=== PATIENT | female | born 1980 | race Caucasian/White ===

== ENCOUNTER 2024-02-18 17:14 | Emergency (ER) | payer BC ==
--- NOTE | 2024-02-18 18:15 | RAD REPORT ---
EXAM DESCRIPTION: RAD - Chest Single View - 02/18/2024 6:08 pm CLINICAL HISTORY: CHEST PAIN Chest pain. COMPARISON: <Comparisons> FINDINGS: Portable technique limits examination quality. The lungs are grossly clear. The heart is normal in size. No displaced fractures. IMPRESSION: No acute intrathoracic process suspected.
--- NOTE | 2024-02-18 20:08 | ER ---
Nurse's Notes [facility] Name: Renetta Hemph[facility] Age: 43 yrs Sex: Female : 1980 Arrival Date: 02/18/2024 Time: 17:14 Bed IW8 Private MD: Diagnosis: Presentation: 02/17 17:19 Chief complaint: Patient states: LEFT CHEST PAIN INTO SHOULDER x45 MIN. bp 17:19 Method Of Arrival: Wheelchair bp 17:19 Coronavirus screen: At this time, the client does not indicate any symptoms associated bp with coronavirus-19. Ebola Screen: No symptoms or risks identified at this time. Initial Sepsis Screen: Does the patient meet any 2 criteria? No. Patient's initial sepsis screen is negative. Does the patient have a suspected source of infection? No. Patient's initial sepsis screen is negative. Risk Assessment: Do you want to hurt yourself or someone else? Patient reports no desire to harm self or others. Onset of symptoms was February 18, 2024 at 16:30. 17:19 Acuity: JAMSE 3 bp Triage Assessment: 17:19 General: Appears distressed, Behavior is cooperative, appropriate for age, anxious. bp Pain: Complains of pain in chest. Cardiovascular: Rhythm is sinus rhythm. Historical: - Allergies: 17:19 Soma; bp 17:19 Sulfa (Sulfonamide Antibiotics); bp - Home Meds: 17:19 None [Active]; bp - Immunization history:: Adult Immunizations up to date. - Infectious Disease History:: Denies. - Social history:: Smoking status: Patient reports the use of cigarette tobacco products, unknown amount. Assessment: 19:45 Reassessment: called from [place], no answer. jl7 Vital Signs: 17:19 BP 144 / 96; Pulse 81; Resp 16; Temp 98; Pulse Ox 100% ; bp ED Course: 17:17 Patient arrived in ED. mg5 17:19 Arm band placed on. bp 17:21 Triage completed. bp 17:23 Matthew Mckinley MD is Attending Physician. sp3 18:10 XRAY Chest (1 view) In Process Unspecified. EDMS 19:27 Pt was not in chair when going to do labs. Called pt from [place], no answer. Charge rv1 nurse notified. 19:45 Patient's name was called from ER [place]. No response. Unable to locate patient. Will jl7 disposition as left without being seen by a provider. 20:07 Patient's name was called from ER lobby. No response. Unable to locate patient. Will jl7 disposition as left without being seen by a provider. Administered Medications: No medications were administered Outcome: 20:07 Patient left the ED. jl7 Signatures: Dispatcher [employer] EDMS Shruthi Barraza RN RN jl7 Dion Posey RN RN Matthew Walton MD MD sp3 Kathleen Dozier 1 Mindi Kovacs mg5
--- NOTE | 2024-02-18 20:08 | EDPHYS ---
Physician Documentation [facility] Name: Renetta Hemphill Age: 43 yrs Sex: Female : 1980 Arrival Date: 02/18/2024 Time: 17:14 Bed IW8 Private MD: ED Physician Matthew Mckinley HPI: 02/17 19:13 This 43 yrs old Female presents to ER via Wheelchair with complaints of Chest Pain. sp3 19:13 43-year-old female with no known past medical history does states she states that she sp3 may have "kidney problems" now presents to the ED with chief complaint chest pain that started while at rest at home approximately 30 minutes prior to arrival. Pain is described as sharp pain substernally without any associated symptoms including shortness of breath, vomiting, nausea, back pain, abdominal pain or any other signs or symptoms. Review of systems otherwise negative for headache, fever, URI symptoms, rash, syncope, near syncope, known sick contacts, prolonged immobilization, prior DVT or PE, or any other signs or symptoms at this time.. Historical: - Allergies: 17:19 Soma; bp 17:19 Sulfa (Sulfonamide Antibiotics); bp - Home Meds: 17:19 None [Active]; bp - Immunization history:: Adult Immunizations up to date. - Infectious Disease History:: Denies. - Social history:: Smoking status: Patient reports the use of cigarette tobacco products, unknown amount. ROS: 19:14 Constitutional: Negative for fever, chills, and weight loss, Eyes: Negative for injury, sp3 pain, redness, and discharge, ENT: Negative for injury, pain, and discharge, Neck: Negative for injury, pain, and swelling, Respiratory: Negative for shortness of breath, cough, wheezing, and pleuritic chest pain, Abdomen/GI: Negative for abdominal pain, nausea, vomiting, diarrhea, and constipation, Back: Negative for injury and pain, MS/Extremity: Negative for injury and deformity, Skin: Negative for injury, rash, and discoloration, Neuro: Negative for headache, weakness, numbness, tingling, and seizure, Psych: Negative for depression, anxiety, suicide ideation, homicidal ideation, and hallucinations, Allergy/Immunology: Negative for hives, rash, and allergies, Endocrine: Negative for neck swelling, polydipsia, polyuria, polyphagia, and marked weight changes, Hematologic/Lymphatic: Negative for swollen nodes, abnormal bleeding, and unusual bruising, 19:14 All other systems are negative, Exam: 19:14 Constitutional: This is a well developed, well nourished patient who is awake, alert, sp3 and in no acute distress. Head/Face: Normocephalic, atraumatic. Eyes: Pupils equal round and reactive to light, extra-ocular motions intact. Lids and lashes normal. Conjunctiva and sclera are non-icteric and not injected. Cornea within normal limits. Periorbital areas with no swelling, redness, or edema. Neck: Trachea midline, no thyromegaly or masses palpated, and no cervical lymphadenopathy. Supple, full range of motion without nuchal rigidity, or vertebral point tenderness. No Meningismus. Chest/axilla: Normal chest wall appearance and motion. Nontender with no deformity. No lesions are appreciated. Cardiovascular: Regular rate and rhythm with a normal S1 and S2. No gallops, murmurs, or rubs. Normal PMI, no JVD. No pulse deficits. Respiratory: Lungs have equal breath sounds bilaterally, clear to auscultation and percussion. No rales, rhonchi or wheezes noted. No increased work of breathing, no retractions or nasal flaring. Abdomen/GI: Soft, non-tender, with normal bowel sounds. No distension or tympany. No guarding or rebound. No evidence of tenderness throughout. Back: No spinal tenderness. No costovertebral tenderness. Full range of motion. Skin: Warm, dry with normal turgor. Normal color with no rashes, no lesions, and no evidence of cellulitis. MS/ Extremity: Pulses equal, no cyanosis. Neurovascular intact. Full, normal range of motion. Neuro: Awake and alert, GCS 15, oriented to person, place, time, and situation. Cranial nerves II-XII grossly intact. Motor strength 5/5 in all extremities. Sensory grossly intact. Cerebellar exam normal. Normal gait. Psych: Awake, alert, with orientation to person, place and time. Behavior, mood, and affect are within normal limits. 19:14 ECG was reviewed by the Attending Physician. EKG demonstrates normal sinus rhythm at 64 bpm with normal intervals, normal QRS, normal axis, normal ST/T-segment's without evidence of acute ischemia. Vital Signs: 17:19 BP 144 / 96; Pulse 81; Resp 16; Temp 98; Pulse Ox 100% ; bp MDM: 17:23 Patient medically screened. sp3 19:14 Data reviewed: vital signs, nurses notes, lab test result(s), EKG, radiologic studies. sp3 ED course: 43-year-old female with no significant PMH now with chest pain. Troponin is pending. Differential diagnosis includes acute coronary syndrome, musculoskeletal pain, GI related pain, among others. Workup will include EKG, chest x-ray and laboratory values. Heart score likely 0-2 range once troponin is back therefore we will obtain second troponin 2 hours later and states to discharge home if negative. Patient will be signed out to nighttime physician for final disposition.. 02/17 17:23 Order name: XRAY Chest (1 view); Complete Time: 18:19 sp3 02/17 17:23 Order name: EKG - Nurse/Tech; Complete Time: 17:31 sp3 Administered Medications: No medications were administered Disposition Summary: 02/18/24 20:07 Eloped Notes: Disposition: after being seen by provider jl7 Reason: unknown jl7 Signatures: Dispatcher [employer] EDShruthi Damian RN RN jl7 Dion Posey, RN RN Matthew Walton MD MD sp3 Corrections: (The following items were deleted from the chart) 17:24 17:24 BASIC METABOLIC PANEL+C.LAB.BRZ ordered. EDMS EDMS 17:24 17:24 CBC+H.LAB.BRZ ordered. EDMS EDMS 17:24 17:24 HEPATIC FUNCTION+C.LAB.BRZ ordered. EDMS EDMS 17:24 17:24 MAGNESIUM+C.LAB.BRZ ordered. EDMS EDMS 17:24 17:24 PROBNP+C.LAB.BRZ ordered. EDMS EDMS 17:24 17:24 PROTIME (+INR)+COAG.LAB.BRZ ordered. EDMS EDMS 17:24 17:24 Troponin High Sensitivity+C.LAB.BRZ ordered. EDMS EDMS 17:24 17:24 Chest Single View+RAD.RAD.BRZ ordered. EDMS EDMS 20:05 17:23 Cardiac monitoring ordered. sp3 jl7 20:06 17:23 IV Saline Lock ordered. sp3 jl7 17:23 Labs collected and sent ordered. sp3 jl7 17:23 Oxygen Per Protocol ordered. sp3 jl7 17:23 O2 Sat Monitoring ordered. sp3 jl7
[2024-02-18 20:13] VITALS: BP 144/96; TEMP 98; O2SAT 100
--- NOTE | 2024-02-19 16:50 | EKG ---
Test Date: 2024-02-18 Test Time: 17:29:17 Meatcutter: KENDALL MEASUREMENT RESULTS: Intervals: Rate: 64 VA: 138 QRSD: 84 QT: 404 QTc: 416 Felch: P: 47 VA: 138 QRS: 61 T: 50 INTERPRETIVE STATEMENTS: Normal sinus rhythm Normal ECG Compared to ECG 08/24/2016 08:34:09 Sinus tachycardia no longer present Atrial abnormality no longer present ST (T wave) deviation no longer present Electronically Signed On 02-19-24 16:47:42 CDT by Thai Soni
== END 2024-02-18 20:07 | disposition left against medical advice (07) ==
LOC: ER 17:14
DX: R07.9 Chest pain, unspecified (principal); Z72.0 Tobacco use
CPT/HCPCS: 71045; 93005; 99281